=== PATIENT | male | born 1985 | race American Indian/Alaskan Native ===

== ENCOUNTER 2017-09-02 21:28 | Emergency (ER) | payer BC, MEDICAID ==
[2017-09-02] MEDS ORDERED: DiphenhydrAMINE 50 mg/ml Inj IVP STA (22:24)
[2017-09-02] MEDS ORDERED: Sodium Chloride 0.9% 1,000 ML IV STA (22:24)
--- NOTE | 2017-09-02 22:28 | C.PDOC ---
History Of Present Illness 32 y/o M c no PMHx p/w headache x 1 day. Headache is R sided, constant, worse with movement, associated with nausea and NBNB vomiting, photophobia. Denies fever, stiff neck, trauma, congestion, rhinorrhea, sore throat, cough, vision change, numbness, weakness. No history of sudden in family or family history of aneurysms. Patient also reports a dizziness that is like a spinning sensation that occurs intermittently with head movement and is associated with nausea. Denies ear pain. Time Seen by Provider: 09/02/17 22:13 Chief Complaint (Nursing): Headache Past Medical History Vital Signs: Last Vital Signs Temp 98 F 09/02/17 21:36 Pulse 68 09/02/17 21:36 Resp 20 09/02/17 21:36 BP 148/82 09/02/17 21:36 Pulse Ox 99 09/02/17 22:32 Family History: States: No Known Family Hx - Social History Hx Alcohol Use: No Hx Substance Use: No - Immunization History Hx Tetanus Toxoid Vaccination: No Hx Influenza Vaccination: No Hx Pneumococcal Vaccination: No Review Of Systems Except As Marked, All Systems Reviewed And Found Negative. Constitutional: Negative for: Fever Cardiovascular: Negative for: Chest Pain Physical Exam - Physical Exam Additional Physical Exam Comments: Constitutional: No acute distress. Sitting in chair keeping eyes covered with jacket. Head: Normocephalic. Atraumatic. No temporal claudication. No sinus tenderness. Eyes: PERRL. EOMI. No middilated pupil. No cloudy cornea. No conjunctival injection. No tearing. ENT: Moist mucous membranes. TMs normal. Neck: Supple. No midline tenderness. Negative Brudzinski sign. FROM. Cardiovascular: Regular rate. Radial pulses 2+ bilaterally. Chest: No tenderness. Respiratory: Clear to auscultation bilaterally. GI: Soft. Nontender. Back: No CVA tenderness. No midline tenderness. Musculoskeletal: No tenderness or swelling of extremities. Skin: No rash. Neurologic: Alert, no focal deficit. CN II to XII intact. Motor 5/5 x 4. Sensation to light touch intact bilaterally. Romberg normal. FTN normal. Steady gait. ED Course And Treatment O2 Sat by Pulse Oximetry: 99 Medical Decision Making Medical Decision Making: Patient with headache, does not appear to be in distress, no focal deficits. Will treat supportively with medications, hydration, oxygen, then reassess. Headache completely gone after treatment. Patient states vertigo persists and is keeping eyes closed. Meclizine administered. F/u ENT, return to ED for worsening pain, fever, stiff neck, vision change, numbness, weakness, constant vertigo, or any other problem. Disposition - Disposition Referrals: Mikey Crowder MD [Staff Provider] - Disposition: HOME/ ROUTINE Disposition Time: 23:47 Condition: STABLE Prescriptions: Acetaminophen [Tylenol 325mg tab] 2 tab PO Q4H #30 tab Ibuprofen [Motrin] 600 mg PO Q6 #25 tab Meclizine [Antivert] 25 mg PO TID PRN #20 tab PRN Reason: Dizziness Instructions: Benign Paroxysmal Positional Vertigo (ED), Acute Headache (ED) Forms: [facility] ([place]i), Work Excuse - Clinical Impression Clinical Impression: Headache, BPPV (benign paroxysmal positional vertigo)
[2017-09-02] MEDS ORDERED: DiphenhydrAMINE 50 mg/ml Inj ONE (23:01)
[2017-09-02] MEDS ORDERED: Sodium Chloride 0.9% 1,000 ML ONE (23:01)
[2017-09-02 23:05] VITALS: RESP 20
[2017-09-03 01:00] VITALS: BP 113/71; PULSE 60; TEMP 98.5; O2SAT 98
== END 2017-09-03 00:59 | disposition home or self-care (01) ==
LOC: C.ER 21:28
DX: H81.10 Benign paroxysmal vertigo, unspecified ear (principal); R51 Headache
CPT/HCPCS: 96374; 96375; 99284; J1200; J1885; J2765; J7040